=== PATIENT | male | born 1985 | race Hispanic/Latino ===

== ENCOUNTER 2023-05-11 12:23 | Emergency (ER) | payer BC ==
[~2023-05-11] VITALS: Ht 167.6 cm; Wt 127.0 kg
[2023-05-11 13:05] VITALS: BP 145/79; PULSE 79; RESP 18
[2023-05-11] MEDS ORDERED: FIORIT PO (17:29)
== END 2023-05-11 17:42 | disposition home or self-care (01) ==
LOC: EDH 12:23
DX: R51.9 Headache, unspecified (principal)
CPT/HCPCS: 70450